=== PATIENT | male | born 1960 | race Caucasian/White ===

== ENCOUNTER 2021-11-15 14:51 | Outpatient (REF) | payer MEDICARE, SELFPAY ==
--- NOTE | ~2021-11-15 | CT_ITS ---
EXAMINATION: CT CHEST SCREENING CLINICAL INFORMATION: Smoking history COMPARISON: None. TECHNIQUE: Multidetector volumetric CT imaging of the chest is performed without contrast using low dose technique. Additional 2D coronal and sagittal reformatted images and axial 3D maximum intensity projection (MIP) images are generated on the CT workstation. This CT examination was performed using dose optimization techniques as appropriate, variously including the following: *Automated exposure control *Adjustment of mA and/or kV according to patient size (this includes techniques or standardized protocols for targeted exams where dose is matched to indication/reason for exam; i.e. extremities or head) *Use of iterative reconstruction technique DLP: 52 mGy-cm FINDINGS: LUNGS: There is a 11 x 7 mm left upper lobe nodule axial image 220 series 5. This is adjacent to a vessel and measurement may include nonopacified vessel.. There is a 3 mm right lower lobe nodule axial image 290 series 5. There is atelectasis at the lung bases.. MEDIASTINUM: There is coronary artery calcification. The mediastinum is otherwise normal. PLEURA: There is no pleural effusion. No pleural mass or thickening. AXILLA: No lymphadenopathy. UPPER ABDOMEN: Unremarkable OSSEOUS STRUCTURES: There are degenerative changes of the spine. CT/CT lung screening IMPRESSION: 2 pulmonary nodules, largest a 11 x 7 mm left upper lobe nodule. Size may be overestimated due to adjacent nonopacified vessel being included in the measurement. Coronary artery calcification. ASSESSMENT: Lung-RADS category 3: Probably Benign RECOMMENDATION: Six-month low-dose chest CT follow-up recommended.
== END 2021-11-15 14:52 | disposition home or self-care (01) ==
LOC: HO.CT 14:51
PROVIDERS: PCP Internal Medicine; Visit Provider Physician Assistant Medical
DX: Z12.2 Encounter for screening for malignant neoplasm of respiratory organs (principal); F17.210 Nicotine dependence, cigarettes, uncomplicated
CPT/HCPCS: 71271; G0296

== ENCOUNTER 2021-12-06 13:19 | Outpatient (REF) | payer MEDICARE, SELFPAY ==
[2021-12-06 14:48] LABS: Blood Urea Nitrogen 19 mg/dL (9-16); Estimated Glomerular Filt Rate 41
== END 2021-12-06 13:20 | disposition home or self-care (01) ==
LOC: HO.LAB 13:19
PROVIDERS: PCP Internal Medicine; Visit Provider Surgery
DX: Z87.891 Personal history of nicotine dependence (principal)
CPT/HCPCS: 36415; 82565; 84520

== ENCOUNTER 2021-12-11 10:51 | Outpatient (REF) | payer MEDICARE, SELFPAY ==
--- NOTE | ~2021-12-11 | CT_ITS ---
EXAMINATION: CT CHEST WITH CONTRAST CLINICAL INFORMATION: Pulmonary nodule. COMPARISON: Previous chest CT November 2021. TECHNIQUE: Multidetector volumetric CT imaging of the chest was obtained after the administration of 65 mL of Omnipaque 350 intravenous contrast without immediate adverse reactions. Axial MIP volume rendering provided. Sagittal and coronal reformatted images were obtained. This CT examination was performed using dose optimization techniques as appropriate, variously including the following: *Automated exposure control *Adjustment of mA and/or kV according to patient size (this includes techniques or standardized protocols for targeted exams where dose is matched to indication/reason for exam; i.e. extremities or head) *Use of iterative reconstruction technique DLP: 132 mGy-cm FINDINGS: LUNGS: The spiculated 7 x 11 mm left upper lobe nodule axial image 93 series 9 is stable. The 3 mm right lower lobe nodule axial image 126 series 9 is stable. There is linear scarring or subsegmental atelectasis at the lung bases. No endobronchial or endotracheal lesion is seen. MEDIASTINUM: There is mild coronary artery calcification. There is a trace pericardial effusion. The mediastinum is otherwise normal. PLEURA: There is no pleural effusion. No pleural mass or thickening. AXILLA: No lymphadenopathy. UPPER ABDOMEN: Unremarkable. OSSEOUS STRUCTURES: There are degenerative changes of the spine. CT/CT chest w con IMPRESSION: Stable 7 x 11 mm spiculated left upper lobe nodule. Fleischner guidelines were followed.
[2021-12-11] MEDS: iohexoL 350 MG/ML 100 ML INFUS..BTL IV (11:33)
== END 2021-12-11 10:52 | disposition home or self-care (01) ==
LOC: HO.CT 10:51
PROVIDERS: Visit Provider Surgery
DX: R91.1 Solitary pulmonary nodule (principal)
CPT/HCPCS: 71260; Q9967

== ENCOUNTER → 2021-12-20 08:52 | Outpatient (BNVA) | payer MEDICARE, SELFPAY | PROVIDERS: PCP Internal Medicine; Visit Provider Surgery | DX: R91.1 Solitary pulmonary nodule (principal) | CPT/HCPCS: 99202 ==

== ENCOUNTER → 2022-02-21 14:37 | Outpatient (BNV) | payer MEDICARE, SELFPAY | PROVIDERS: PCP Physician Assistant; Referring Provider Physician Assistant; Visit Provider Internal Medicine | DX: C34.90 Malignant neoplasm of unspecified part of unspecified bronchus or lung (principal) | CPT/HCPCS: 99205; 99213; 99214; G2211 ==

== ENCOUNTER 2022-04-10 11:14 | Outpatient (REF) | payer MEDICARE, SELFPAY | END 2022-04-10 11:15 | disposition home or self-care (01) | LOC: HO.LAB 11:14 | PROVIDERS: PCP Internal Medicine; Visit Provider Internal Medicine | DX: D75.839 Thrombocytosis, unspecified (principal); C34.90 Malignant neoplasm of unspecified part of unspecified bronchus or lung; Z13.79 Encounter for other screening for genetic and chromosomal anomalies | CPT/HCPCS: 36415; 81206; 81207; 81219; 81270; 81279; 81339 ==

== ENCOUNTER 2022-08-15 12:40 | Outpatient (REF) | payer MEDICARE, SELFPAY ==
--- NOTE | ~2022-08-15 | CT_ITS ---
EXAMINATION: CT CHEST WITHOUT CONTRAST CLINICAL INFORMATION: Malignant neoplasm of unspecified part. COMPARISON: CT chest 12/11/2021. TECHNIQUE: Multidetector volumetric CT imaging of the chest was done. Axial MIP volume rendering provided. Sagittal and coronal reformatted images were obtained. This CT examination was performed using dose optimization techniques as appropriate, variously including the following: *Automated exposure control *Adjustment of mA and/or kV according to patient size (this includes techniques or standardized protocols for targeted exams where dose is matched to indication/reason for exam; i.e. extremities or head) *Use of iterative reconstruction technique DLP: 236 mGy-cm. FINDINGS: TIRE RECAPPER: Well-inflated lungs. LUNGS: Postsurgical changes with loss of left upper lobe volume. The left upper lobe ill-defined nodule has been resected. A hyperexpanded left lower lobe is noted. There are no new nodules, mass or consolidation seen. MEDIASTINUM: The thyroid lobes are symmetric and normal. The central trachea and the bronchi widely patent. The heart size and pulmonary vascularity is normal. There are coronary artery calcifications present. No pericardial effusion seen. CORONARY ARTERY CALCIFICATION: There are mild coronary artery calcifications present. PLEURA: There is no pleural effusion. No pleural mass or thickening. AXILLA: No abnormal size axillary lymph nodes. No chest wall mass. UPPER ABDOMEN: Visualized liver, spleen, pancreas and bilateral adrenal glands are unremarkable. OSSEOUS STRUCTURES: No aggressive lytic or sclerotic process seen. There is mild ventral spondylosis lower dorsal spine. CT/CT chest wo IV con IMPRESSION: Postsurgical changes left upper lobe with resection of left upper lobe nodule. Otherwise lungs are clear. No abnormal mediastinal or axillary adenopathy. Fleischner guidelines were followed.
== END 2022-08-15 12:41 | disposition home or self-care (01) ==
LOC: HO.CT 12:40
PROVIDERS: PCP Internal Medicine; Visit Provider Surgery
DX: C34.90 Malignant neoplasm of unspecified part of unspecified bronchus or lung (principal)
CPT/HCPCS: 71250

== ENCOUNTER → 2022-08-29 09:36 | Outpatient (BNVA) | payer MEDICARE, SELFPAY | PROVIDERS: PCP Internal Medicine; Visit Provider Surgery | DX: C34.90 Malignant neoplasm of unspecified part of unspecified bronchus or lung (principal); J43.9 Emphysema, unspecified | CPT/HCPCS: 99212 ==

== ENCOUNTER → 2022-10-13 15:42 | Outpatient (BNVA) | payer MEDICARE, SELFPAY | PROVIDERS: PCP Internal Medicine; Visit Provider Internal Medicine | DX: J44.9 Chronic obstructive pulmonary disease, unspecified (principal); C34.90 Malignant neoplasm of unspecified part of unspecified bronchus or lung; Z87.891 Personal history of nicotine dependence | CPT/HCPCS: 99202 ==

== ENCOUNTER 2022-10-23 10:49 | Outpatient (REF) | payer MEDICARE, SELFPAY ==
--- NOTE | 2022-10-23 15:09 | PFT_ITS ---
Forced vital capacity is 82%, FEV1 68%, FEV1/FVC ratio is 62. FEF 25-75 37% and MVV 67%. Post bronchodilator therapy, there is no significant change. Total lung capacity 85% and residual volume 90%. Diffusion capacity is 40%. CONCLUSION: Obstructive airway disorder, moderately severe. No significant response to bronchodilator therapy. Proportionately more decrease in diffusion capacity may be due to pulmonary emphysema. Clinical correlation recommended. MD LEIF Armendariz/MODLinda / [id number]
== END 2022-10-23 10:50 | disposition home or self-care (01) ==
LOC: HO.RESP 10:49
PROVIDERS: Visit Provider Internal Medicine
DX: J44.9 Chronic obstructive pulmonary disease, unspecified (principal); C34.90 Malignant neoplasm of unspecified part of unspecified bronchus or lung
CPT/HCPCS: 94060; 94727; 94729

== ENCOUNTER → 2022-11-12 11:04 | Outpatient (BNVA) | payer MEDICARE, SELFPAY | PROVIDERS: PCP Internal Medicine; Visit Provider Internal Medicine | DX: C34.90 Malignant neoplasm of unspecified part of unspecified bronchus or lung (principal); J44.9 Chronic obstructive pulmonary disease, unspecified | CPT/HCPCS: 99212 ==

== ENCOUNTER 2023-02-18 12:43 | Outpatient (REF) | payer MEDICARE, SELFPAY ==
--- NOTE | ~2023-02-18 | CT_ITS ---
EXAMINATION: CT CHEST WITHOUT CONTRAST CLINICAL INFORMATION: Lung cancer COMPARISON: Previous chest CT most recent August 2022 TECHNIQUE: Multidetector volumetric CT imaging of the chest was done. Axial MIP volume rendering provided. Sagittal and coronal reformatted images were obtained. This CT examination was performed using dose optimization techniques as appropriate, variously including the following: *Automated exposure control *Adjustment of mA and/or kV according to patient size (this includes techniques or standardized protocols for targeted exams where dose is matched to indication/reason for exam; i.e. extremities or head) *Use of iterative reconstruction technique DLP: 132 mGy-cm FINDINGS: LUNGS: Exam is limited due to motion artifact. Emphysema. Postsurgical changes following partial left upper lobe lobectomy. Mild scarring or subsegmental atelectasis adjacent to the surgical staple line and focal bronchiectasis and bronchial wall thickening. This is similar to previous exam. 2 mm peripheral or subpleural right upper lobe nodule axial image 152 series 5 and 2 mm left upper lobe nodule adjacent to the fissure axial image 197 series 5. 3 mm right lower lobe nodule axial image 337 series 5. These are stable. The No endobronchial or endotracheal lesion. MEDIASTINUM: The mediastinum is normal. CORONARY ARTERY CALCIFICATION: Moderate PLEURA: There is no pleural effusion. No pleural mass or thickening. AXILLA: No lymphadenopathy. UPPER ABDOMEN: Unremarkable. OSSEOUS STRUCTURES: Mild degenerative changes of the spine. CT/CT chest wo IV con IMPRESSION: Slightly limited due to motion artifact. Emphysema. Postsurgical changes following partial left upper lobe lobectomy. Stable small pulmonary nodules. Fleischner guidelines were followed.
== END 2023-02-18 12:44 | disposition home or self-care (01) ==
LOC: HO.CT 12:43
PROVIDERS: PCP Internal Medicine; Visit Provider Surgery
DX: C34.91 Malignant neoplasm of unspecified part of right bronchus or lung (principal)
CPT/HCPCS: 71250

== ENCOUNTER → 2023-02-23 10:13 | Outpatient (BNVA) | payer MEDICARE, SELFPAY | PROVIDERS: PCP Internal Medicine; Visit Provider Internal Medicine | DX: J44.9 Chronic obstructive pulmonary disease, unspecified (principal); C34.90 Malignant neoplasm of unspecified part of unspecified bronchus or lung; Z87.891 Personal history of nicotine dependence | CPT/HCPCS: 99212 ==

== ENCOUNTER → 2023-02-27 08:58 | Outpatient (BNVA) | payer MEDICARE, SELFPAY | PROVIDERS: PCP Internal Medicine; Visit Provider Surgery | DX: C34.90 Malignant neoplasm of unspecified part of unspecified bronchus or lung (principal) | CPT/HCPCS: 99212 ==

== ENCOUNTER 2023-08-17 10:52 | Outpatient (REF) | payer MEDICARE, SELFPAY ==
--- NOTE | ~2023-08-17 | CT_ITS ---
EXAMINATION: CT CHEST WITHOUT CONTRAST CLINICAL INFORMATION: Restaging lung cancer. COMPARISON: Prior chest CT examinations, most recently 02/18/2023. TECHNIQUE: Multidetector volumetric CT imaging of the chest was done. Axial MIP volume rendering provided. Sagittal and coronal reformatted images were obtained. This CT examination was performed using dose optimization techniques as appropriate, variously including the following: *Automated exposure control *Adjustment of mA and/or kV according to patient size (this includes techniques or standardized protocols for targeted exams where dose is matched to indication/reason for exam; i.e. extremities or head) *Use of iterative reconstruction technique DLP: 203 mGy-cm FINDINGS: NEUROPSYCHOLOGY MEDICAL CONSULTANT: The lungs are symmetrically well-expanded. LUNGS: There are stable postoperative changes status-post prior partial left upper lobectomy. No residual or recurrent lesion is seen. At the posterior right base (5:280), a 3 mm noncalcified nodule is seen. Abutting the left major fissure (5:162), a 3 mm benign, pleural-based lymph node is seen. These nodules are stable from prior. No new nodule, mass, infiltrate or groundglass opacity is seen. There is no generalized small airway thickening. There is mild right base scar/subsegmental atelectasis. The central airways appear patent. MEDIASTINUM: The thyroid is unremarkable. There is no thoracic aortic aneurysm. There are mild atherosclerotic calcifications of the great vessel origins and thoracic aorta. No mediastinal or hilar lymphadenopathy is seen. CORONARY ARTERY CALCIFICATION: Mild. PLEURA: There is no pleural effusion. No pleural mass or thickening. AXILLA: No lymphadenopathy. There is mild bilateral gynecomastia. UPPER ABDOMEN: Unremarkable. OSSEOUS STRUCTURES: There is multi-level marked lower thoracic and upper lumbar degenerative disc disease and spondylosis. No acute or aggressive osseous finding is seen. CT/CT chest wo IV con IMPRESSION: 1. There are stable postoperative changes consistent with a partial left upper lobectomy. No residual or recurrent lesion is noted. 2. There are stable small bilateral pulmonary nodules. Recommend continued attention on imaging follow-up. 3. Nodule, mass, infiltrate or groundglass opacity is seen. 4. There is mild right base scar/subsegmental atelectasis, without focal airway obstruction. 5. No thoracic adenopathy or pleural effusion is seen. 6. There is mild bilateral gynecomastia. 7. There are multi-level degenerative changes of the thoracolumbar spine. No aggressive osseous lesion is seen.
== END 2023-08-17 10:53 | disposition home or self-care (01) ==
LOC: HO.CT 10:52
PROVIDERS: PCP Internal Medicine; Visit Provider Surgery
DX: C34.90 Malignant neoplasm of unspecified part of unspecified bronchus or lung (principal)
CPT/HCPCS: 71250

== ENCOUNTER 2023-08-25 13:08 | Outpatient (AMB) | payer MEDICARE, SELFPAY ==
[2023-08-25 13:20] VITALS: BP 142/68; PULSE 101; O2SAT 97; BMI 20.8
--- NOTE | 2023-08-25 13:20 | A.OFFVIS_ITS ---
Intake Vital Signs 08/25/23 13:20 Height 6 ft 1 in Weight 158 lb BMI 20.8 BP 142/68 H Blood Pressure Location Lt brachial Position Sitting Pulse 101 H Pulse Source Pulse Oximeter Pulse Oximetry (%) 97 Oxygen Delivery Method Room Air Intake Visit Reasons: emphysema Intake Note: pt is here for follow up and states he had a ruff couple of days due to cold, but better today. Family Support Specialist Required: No Allergies codeine Allergy (Severe, Verified 08/25/23 13:36) Itching Medication List - Last Reconciled 08/25/23 by Megan Salmeron MD 5-hydroxytryptophan (5-HTP) 50 mg PO BID PRN amitriptyline 50 mg PO DAILY PRN amlodipine 2.5 mg PO DAILY bupropion HCl 300 mg PO QAM omeprazole 20 mg PO DAILY umeclidinium 62.5 mcg/actuation (Incruse Ellipta) 1 inh inhalation Q24H 30 days Do you need a note to return to daycare/school/sports/work: No HPI emphysema HPI Details 63 YEARS OLD GENTLEMAN WITH CHRONIC OBST RUCTIVE PULMONARY DISEASE, HAD WEDGE RESECTION LEFT UPPER LOBE FOR NEOPLASM IN JANUARY 2022. HAS HAD NO RECURRENCE, HE DOES GET SOME DISCOMFORT IN THE LEFT UPPER CHEST TO OFF AND ON DUE TO COUGH. RECENTLY HAD A COMMON COLD FOR A WEEK OR 10 DAYS AND IT IMPROVED AFTER USING OTC COUGH MEDS ( DAYQUIL/NYQUIL ) HE DENIES ANY ACUTE RESPIRATORY SYMPTOMS AT THIS TIME. HE HAS ONLY MINIMAL DEGREE OF DYSPNEA ON EXERTION. [facility] Medical History Loss of tooth from removable partial denture COPD (chronic obstructive pulmonary disease) Hypertension, essential Personal history of nicotine dependence Surgical History S/P cervical disc replacement History of lung surgery History of cataract surgery History of lumbar surgery History of exploratory laparotomy History of colonoscopy Family History Mother Breast cancer Social History Household Members: None Housing: House Alcohol intake: current Alcohol intake frequency: a few times a month Patient Tobacco Use Status: Former Tobacco user Quit Date: 05/14/2021 Tobacco use type: Cigarette Years Smoked: onset 14, 1/2-1ppd x 47yrs, 35pyh - quit 2020 Current occupational status: disabled Review of Systems Const All systems reviewed & are unremarkable except as noted in HPI and below Eyes Reports no additional complaints ENT Reports no additional complaints and Reports neck pain Card Denies chest pain at rest, Denies irregular heart rhythm and Denies leg edema Resp Reports as per HPI GI Reports heartburn (GERD symptoms being treated with omeprazole) Reports no additional complaints Musc Reports back pain and Reports neck pain Skin/Breast Reports rash (Has chronic nummular Psoriasis , ) Neuro Reports no additional complaints Psych Reports anxiety Endo Reports no additional complaints Pancho/Lymph Reports no additional complaints Physical Exam Vital Signs: Last Vital Signs Pulse 101 H 08/25/23 13:20 BP 142/68 H 08/25/23 13:20 Pulse Ox 97 08/25/23 13:20 Oxygen Delivery Method Room Air 08/25/23 13:20 BMI result Body Mass Index 20.8 Const General: comfortable, no acute distress, alert and awake Orientation/consciousness: patient oriented x3 HEENT Head: Yes normal to inspection General nose exam: No nasal polyps present and No nasal discharge present Face and sinus: Yes sinuses nontender Mouth: oropharynx normal Throat: Yes posterior oropharynx normal Eyes General: appearance normal, both eyes and all related structures Neck Neck: Yes normal visual inspection, Yes no lymphadenopathy, Yes trachea midline and Yes no JVD Thyroid: Thyroid normal Chest Chest palpation & inspection: normal inspection of the chest, normal palpation of entire chest wall and no tenderness Resp Other: Percussion note is RESONANT Breath sounds are distant with prolonged expiratory phase . No wheezes and creps are heard ., Effort & Inspection: normal respiratory effort Auscultation: clear to auscultation bilaterally Cardio Palpation: normal PMI Rate: regular rate Rhythm: regular rhythm Heart sounds: no gallops and no murmurs Peripheral pulses: Peripheral pulses 2+ throughout GI Palpation (GI): Soft to palpation, nontender, No hepatosplenomegaly present and no masses Auscultation: normal bowel sounds Back/Spine/Pelvis Thoracic/Lumbar Spine: thoracic and lumbar spine normal to inspection and thoraco-lumbar ROM limited Skin General skin exam: other (He has Nummular Psoriasis on his back ) Neuro General: patient oriented x3 and no focal motor deficits Cranial nerves: Yes CN's II-XII intact bilaterally Extrem General: Yes normal to inspection, Yes no clubbing, cyanosis or edema and Yes no calf tenderness Psych Appearance: grossly normal and well kempt Speech and movement: Normal speech and movement present Assessment & Plan Assessment & Plan (1) Personal history of nicotine dependence: Comment: (Former smoker - onset 14, 1/2-1ppd x 47 yrs, 35pyh, quit 04/2021) Code(s): Z87.891 - Personal history of nicotine dependence Plan: COMMENDED FOR NOT SMOKING (2) COPD (chronic obstructive pulmonary disease): Comment: PATIENT HAS MILD TO MODERTAELY SEVERE COPD , HE DID NOT RESPOND POSITIVELY TO BRONCHODILATOR THERAPY. HIS FUNCTIONAL STATUS IS FAIRLY GOOD AT THIS TIME. Code(s): J44.9 - Chronic obstructive pulmonary disease, unspecified Plan: TX CONTINUE INCRUSE ELLIPTA ONE INH DAILY VENTOLIN 2 PUFFS Q 4-6 HRS PRN RE-ASSURED THAT HIS LUNGS ARE CLEAR AND HIS RESPIRATORY STATUS IS VERY STABLE (3) Adenocarcinoma, lung: Onset Date: ~2021 Comment: (Stage Ib - s/p ALVA wedge resection - 01/2022), by Dr. Rivera . He is doing very well after this surgery. I explained to him that the space created by wedge resection of the upper lobectomy, is compensated by expansion of the remaining lung. And he understands well. Code(s): C34.90 - Malignant neoplasm of unspecified part of unspecified bronchus or lung Plan: Continue yearly follow-up with Dr. Diaz Coding Level of Care Code Est Pt Level 3 (05206) Diagnoses Personal history of nicotine dependence Z87.891 COPD (chronic obstructive pulmonary disease) J44.9 Adenocarcinoma, lung C34.90
== END 2023-08-25 13:37 | disposition home or self-care (01) ==
PROVIDERS: PCP Internal Medicine; Visit Provider Internal Medicine
DX: Z87.891 Personal history of nicotine dependence (principal); J44.9 Chronic obstructive pulmonary disease, unspecified; C34.90 Malignant neoplasm of unspecified part of unspecified bronchus or lung
CPT/HCPCS: 99213

== ENCOUNTER → 2023-08-25 13:08 | Outpatient (BNVA) | payer MEDICARE, SELFPAY | PROVIDERS: PCP Internal Medicine; Visit Provider Internal Medicine | DX: J44.9 Chronic obstructive pulmonary disease, unspecified (principal); C34.90 Malignant neoplasm of unspecified part of unspecified bronchus or lung; Z87.891 Personal history of nicotine dependence | CPT/HCPCS: 99212 ==

== ENCOUNTER 2024-04-25 11:54 | Outpatient (REF) | payer MEDICARE, SELFPAY ==
[2024-04-25 12:27] LABS: Blood Urea Nitrogen 5 mg/dL (9-16); Estimated Glomerular Filt Rate > 60
== END 2024-04-25 11:55 | disposition home or self-care (01) ==
LOC: HO.LAB 11:54
PROVIDERS: PCP Internal Medicine; Visit Provider Internal Medicine
DX: C34.90 Malignant neoplasm of unspecified part of unspecified bronchus or lung (principal)
CPT/HCPCS: 36415; 82565; 84520

== ENCOUNTER 2024-05-24 10:32 | Outpatient (REF) | payer MEDICARE, SELFPAY ==
--- NOTE | ~2024-05-24 | CT_ITS ---
EXAMINATION: CT CHEST WITHOUT CONTRAST CLINICAL INFORMATION: Shortness of breath. COMPARISON: August 17, 2023 and February 18, 2023 TECHNIQUE: Multidetector volumetric CT imaging of the chest was done. Axial MIP volume rendering provided. Sagittal and coronal reformatted images were obtained. No intravenous access. This CT examination was performed using dose optimization techniques as appropriate, variously including the following: *Automated exposure control *Adjustment of mA and/or kV according to patient size (this includes techniques or standardized protocols for targeted exams where dose is matched to indication/reason for exam; i.e. extremities or head) *Use of iterative reconstruction technique DLP: 142 mGy-cm FINDINGS: LUNGS: Stable postoperative changes in the left upper lobe. 3 mm nodule right lower lobe on image 38 of series 4. 3 mm nodule abutting the left major fissure on image 23 of series 4. No new or enlarging pulmonary nodules. No focal consolidation. Central airways are patent. MEDIASTINUM: Imaged thyroid gland is unremarkable. Subcarinal lymph node measures 1.0 x 1.3 cm. Pretracheal lymph node measures 1.0 x 0.8 cm. Great vessels are of normal caliber. Heart size is normal. Small pericardial effusion. CORONARY ARTERY CALCIFICATION: Moderate. PLEURA: No pleural effusion. AXILLA: No lymphadenopathy. UPPER ABDOMEN: No adrenal mass. OSSEOUS STRUCTURES: No destructive bone lesions. CT/CT chest wo IV con IMPRESSION: Stable postoperative changes of partial left upper lobectomy. No new or enlarging pulmonary nodules. No acute intrathoracic abnormality. Electronically signed by: Phillip Calvo MD 05/30/2024 04:49 PM EDT
== END 2024-05-24 10:33 | disposition home or self-care (01) ==
LOC: HO.CT 10:32
PROVIDERS: Visit Provider Internal Medicine
DX: C34.90 Malignant neoplasm of unspecified part of unspecified bronchus or lung (principal)
CPT/HCPCS: 71250

== ENCOUNTER 2024-07-19 10:48 | Outpatient (AMB) | payer MEDICARE, SELFPAY ==
[2024-07-19 10:53] VITALS: BP 138/80; PULSE 104; O2SAT 100; BMI 21.4
--- NOTE | 2024-07-19 10:53 | MHC.OFFVIS ---
Vital Signs 07/19/24 10:53 Height 6 ft 1 in Weight 162 lb 0.636 oz BMI 21.4 BP 138/80 Blood Pressure Location Rt brachial Position Sitting Pulse 104 H Pulse Source Pulse Oximeter Pulse Oximetry (%) 100 Oxygen Delivery Method Room Air Intake Visit Reasons: COPD Screen Printing Inspector Required: No Website Developer: Website Developer offered & declined Accompanied by: Self / Same As Patient Allergies codeine Allergy (Severe, Verified 07/19/24 11:01) Itching Medication List - Last Reconciled 07/19/24 by Megan Salmeron MD 5-hydroxytryptophan (5-HTP) 50 mg PO BID PRN amitriptyline 50 mg PO DAILY PRN amlodipine 2.5 mg PO DAILY bupropion HCl XL 300 mg PO QAM bupropion HCl XL 300 mg PO QAM omeprazole 20 mg PO DAILY tadalafil 20 mg PO Q OTHER DAY PRN tamsulosin 0.4 mg PO BEDTIME umeclidinium 62.5 mcg/actuation (Incruse Ellipta) 1 inh inhalation Q24H 30 days Do you need a note to return to daycare/school/sports/work: No HPI HPI COPD: Details: This 64 years old gentleman, is here for follow-up after 1 year. In the interim. He has remained very stable, without any acute exacerbation. He denies cough or wheezing. His main complaint is that he still feels short of breath on exertion like walking or climbing stairs. He is using Incruse Ellipta 1 inhalation daily and hardly needs to use the albuterol. 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 And he comes to see me once a year. He did quit smoking in 2020. [facility] Medical History Loss of tooth from removable partial denture COPD (chronic obstructive pulmonary disease) Hypertension, essential Personal history of nicotine dependence Surgical History S/P cervical disc replacement History of lung surgery History of cataract surgery History of lumbar surgery History of exploratory laparotomy History of colonoscopy Family History Mother Breast cancer Social History Household Members: None Housing: House Alcohol intake: current Alcohol intake frequency: a few times a month Patient Tobacco Use Status: Former Tobacco user Tobacco use type: Cigarette Years Smoked: onset 14, 1/2-1ppd x 47yrs, 35pyh - quit 2020 Current occupational status: disabled Review of Systems Const All systems reviewed & are unremarkable except as noted in HPI and below Eyes Reports no additional complaints ENT Reports no additional complaints and Reports neck pain Card Denies chest pain at rest, Denies irregular heart rhythm and Denies leg edema Resp Reports as per HPI GI Reports heartburn (GERD symptoms being treated with omeprazole) Reports no additional complaints Musc Reports back pain and Reports neck pain Skin/Breast Reports rash (Has chronic nummular Psoriasis , ) Neuro Reports no additional complaints Psych Reports anxiety Endo Reports no additional complaints Pancho/Lymph Reports no additional complaints Physical Exam Vital Signs: Last Vital Signs Pulse 104 H 07/19/24 10:53 BP 138/80 07/19/24 10:53 Pulse Ox 100 07/19/24 10:53 Oxygen Delivery Method Room Air 07/19/24 10:53 BMI result Body Mass Index 21.4 Const General: comfortable, no acute distress, alert and awake Orientation/consciousness: patient oriented x3 HEENT Head: Yes normal to inspection General nose exam: No nasal polyps present and No nasal discharge present Face and sinus: Yes sinuses nontender Mouth: oropharynx normal Throat: Yes posterior oropharynx normal Eyes General: appearance normal, both eyes and all related structures Neck Neck: Yes normal visual inspection, Yes no lymphadenopathy, Yes trachea midline and Yes no JVD Thyroid: Thyroid normal Chest Chest palpation & inspection: normal inspection of the chest, normal palpation of entire chest wall and no tenderness Resp Other: Percussion note is RESONANT Breath sounds are distant with prolonged expiratory phase . No wheezes and creps are heard ., Effort & Inspection: normal respiratory effort Auscultation: clear to auscultation bilaterally Cardio Palpation: normal PMI Rate: regular rate Rhythm: regular rhythm Heart sounds: no gallops and no murmurs Peripheral pulses: Peripheral pulses 2+ throughout GI Palpation (GI): Soft to palpation, nontender, No hepatosplenomegaly present and no masses Auscultation: normal bowel sounds Back/Spine/Pelvis Thoracic/Lumbar Spine: thoracic and lumbar spine normal to inspection and thoraco-lumbar ROM limited Skin General skin exam: other (He has Nummular Psoriasis on his back ) Neuro General: patient oriented x3 and no focal motor deficits Cranial nerves: Yes CN's II-XII intact bilaterally Extrem General: Yes normal to inspection, Yes no clubbing, cyanosis or edema and Yes no calf tenderness Psych Appearance: grossly normal and well kempt Speech and movement: Normal speech and movement present Office Procedures Spirometry Testing Spirometry Comments: In office spirometry completed with results given to Dr Salmeron. [id number]- Spirometry Results Reviewed Results Reviewed: SPIROMETRY Because of his complaint of persistent and slightly increased shortness of breath on exertion, .A spirometry in the office was done The results are consistent with mild to moderate degree of obstructive airway disorder, numbers are not any worse from PFT in 2021 and spirometry in 2022. Rather there is some improvement in the flow volumes. Assessment & Plan Assessment & Plan (1) COPD (chronic obstructive pulmonary disease): Comment: PATIENT HAS MILD TO MODERTAELY SEVERE COPD , HE DID NOT RESPOND POSITIVELY TO BRONCHODILATOR THERAPY. HIS FUNCTIONAL STATUS IS FAIRLY GOOD THOUGH HE COMPLAINS OF SLIGHT INCREASE IN DYSPNEA ON EXERTION. SPIROMETRY SHOWS THAT THERE IS NO DECLINE IN HIS PULMONARY FUNCTION, RATHER THE FLOW VOLUMES ARE SLIGHTLY INCREASED. Code(s): J44.9 - Chronic obstructive pulmonary disease, unspecified Category: Medical Plan: REASSURED CONTINUE TO USE INCRUSE ELLIPTA 1 INHALATION DAILY ALBUTEROL HFA 2 PUFFS Q 6 HOURS ONLY P.R.N.. DO GENTLE DEEP BREATHING EXERCISES DAILY. FOLLOW-UP Q 6 MONTHS. (2) Adenocarcinoma, lung: Onset Date: ~2021 Comment: (Stage Ib - s/p ALVA wedge resection - 01/2022), by Dr. Rivera . He is doing very well after this surgery. I explained to him that the space created by wedge resection of the upper lobectomy, is compensated by expansion of the remaining lung. And he understands well. Code(s): C34.90 - Malignant neoplasm of unspecified part of unspecified bronchus or lung Category: Medical Plan: HE IS DOING WELL. FOLLOW-UP WITH ONCOLOGY SERVICE NEEDED Orders: Orders AMB Spirometry Testing Today J44.9 - Chronic obstructive pulmonary disease, unspecified Coding Level of Care Code Est Pt Level 3 (02775) Diagnoses COPD (chronic obstructive pulmonary disease) J44.9 Adenocarcinoma, lung C34.90 CPT Codes Spirometry - CPT: 96090- Spirometry ([id number])
== END 2024-07-19 11:42 | disposition home or self-care (01) ==
LOC: HO.HPS 10:49
PROVIDERS: PCP Internal Medicine; Visit Provider Internal Medicine
DX: J44.9 Chronic obstructive pulmonary disease, unspecified (principal); C34.90 Malignant neoplasm of unspecified part of unspecified bronchus or lung
CPT/HCPCS: 94010; 99213

== ENCOUNTER → 2024-07-19 10:48 | Outpatient (BNVA) | payer MEDICARE, SELFPAY | PROVIDERS: PCP Internal Medicine; Visit Provider Internal Medicine | DX: J44.9 Chronic obstructive pulmonary disease, unspecified (principal); C34.90 Malignant neoplasm of unspecified part of unspecified bronchus or lung | CPT/HCPCS: 94010; 99212 ==

== ENCOUNTER 2025-01-16 11:06 | Outpatient (AMB) | payer MEDICARE, SELFPAY ==
[2025-01-16 11:11] VITALS: BP 122/74; PULSE 96; O2SAT 97; BMI 22.1
--- NOTE | 2025-01-16 11:11 | MHC.OFFVIS ---
Vital Signs 01/16/25 11:11 Height 6 ft 1 in Weight 167 lb 8.821 oz BMI 22.1 BP 122/74 Blood Pressure Location Rt brachial Position Sitting Pulse 96 Pulse Source Pulse Oximeter Pulse Oximetry (%) 97 Oxygen Delivery Method Room Air Intake Visit Reasons: COPD Allergies codeine Allergy (Severe, Verified 01/16/25 11:50) Itching Medication List - Last Reconciled 01/16/25 by Megan Salmeron MD albuterol sulfate 2.5 mg inhalation Q4-6H PRN albuterol sulfate 90 mcg/actuation 2 puffs inhalation Q4-6H PRN 30 days amlodipine 2.5 mg PO DAILY bupropion HCl XL 300 mg PO QAM bupropion HCl XL 300 mg PO QAM omeprazole 20 mg PO DAILY tadalafil 20 mg PO Q OTHER DAY PRN tamsulosin 0.4 mg PO BEDTIME umeclidinium 62.5 mcg/actuation (Incruse Ellipta) 1 inh inhalation Q24H 30 days Do you need a note to return to daycare/school/sports/work: No HPI HPI COPD: Details: This 65 years old gentleman, is here for follow-up after 1 year. In the interim period He has remained very stable. In September of this year and then again in December he had bouts of acute exacerbation. He started having acute cough with some shortness of breath. Seen in the emergency room and treated with a course of antibiotic , doxycycline . He got better but remains quite concerned and is afraid that he may continue to have these acute exacerbations. He denies cough or wheezing at present. His main complaint is that he still feels short of breath on exertion like walking or climbing stairs. He is using Incruse Ellipta 1 inhalation daily and hardly needs to use the albuterol. 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 Nneka Diaz . He has had no recurrence He is being followed by Oncology , [facility] Medical History Loss of tooth from removable partial denture COPD (chronic obstructive pulmonary disease) Hypertension, essential Personal history of nicotine dependence Surgical History S/P cervical disc replacement History of lung surgery History of cataract surgery History of lumbar surgery History of exploratory laparotomy History of colonoscopy Family History Mother Breast cancer Social History Household Members: None Housing: House Alcohol intake: current Alcohol intake frequency: a few times a month Patient Tobacco Use Status: Former Tobacco user Tobacco use type: Cigarette Years Smoked: onset 14, 1/2-1ppd x 47yrs, 35pyh - quit 2020 Current occupational status: disabled Review of Systems Const All systems reviewed & are unremarkable except as noted in HPI and below Eyes Reports no additional complaints ENT Reports no additional complaints and Reports neck pain Card Denies chest pain at rest, Denies irregular heart rhythm and Denies leg edema Resp Reports as per HPI GI Reports heartburn (GERD symptoms being treated with omeprazole) Reports no additional complaints Musc Reports back pain and Reports neck pain Skin/Breast Reports rash (Has chronic nummular Psoriasis , ) Neuro Reports no additional complaints Psych Reports anxiety Endo Reports no additional complaints Pancho/Lymph Reports no additional complaints Physical Exam Vital Signs: Last Vital Signs Pulse 96 01/16/25 11:11 BP 122/74 01/16/25 11:11 Pulse Ox 97 01/16/25 11:11 Oxygen Delivery Method Room Air 01/16/25 11:11 BMI result Body Mass Index 22.1 Const General: comfortable, no acute distress, alert and awake Orientation/consciousness: patient oriented x3 HEENT Head: Yes normal to inspection General nose exam: No nasal polyps present and No nasal discharge present Face and sinus: Yes sinuses nontender Mouth: oropharynx normal Throat: Yes posterior oropharynx normal Eyes General: appearance normal, both eyes and all related structures Neck Neck: Yes normal visual inspection, Yes no lymphadenopathy, Yes trachea midline and Yes no JVD Thyroid: Thyroid normal Chest Chest palpation & inspection: normal inspection of the chest, normal palpation of entire chest wall and no tenderness Resp Other: Percussion note is RESONANT Breath sounds are distant with prolonged expiratory phase . No wheezes and creps are heard ., Effort & Inspection: normal respiratory effort Auscultation: clear to auscultation bilaterally Cardio Palpation: normal PMI Rate: regular rate Rhythm: regular rhythm Heart sounds: no gallops and no murmurs Peripheral pulses: Peripheral pulses 2+ throughout GI Palpation (GI): Soft to palpation, nontender, No hepatosplenomegaly present and no masses Auscultation: normal bowel sounds Back/Spine/Pelvis Thoracic/Lumbar Spine: thoracic and lumbar spine normal to inspection and thoraco-lumbar ROM limited Skin General skin exam: other (He has Nummular Psoriasis on his back ) Neuro General: patient oriented x3 and no focal motor deficits Cranial nerves: Yes CN's II-XII intact bilaterally Extrem General: Yes normal to inspection, Yes no clubbing, cyanosis or edema and Yes no calf tenderness Psych Appearance: grossly normal and well kempt Speech and movement: Normal speech and movement present Assessment & Plan Assessment & Plan (1) Personal history of nicotine dependence: Comment: (Former smoker - onset 14, 09/15-1ppd x 47 yrs, 35pyh, quit 04/2021) Code(s): Z87.891 - Personal history of nicotine dependence Category: Medical Plan: Commended for having quit smoking, had a good discussion with him, he has no urge to go back to smoking. (2) Adenocarcinoma, lung: Onset Date: ~2021 Comment: (Stage Ib - s/p ALVA wedge resection - 01/2022), by Dr. Rivera . He is doing very well after this surgery. I explained to him that the space created by wedge resection of the upper lobectomy, is compensated by expansion of the remaining lung. And he understands well. I also explained to him that a spot indicating scar tissue will continue to be seen on the plain chest x-ray. Code(s): C34.90 - Malignant neoplasm of unspecified part of unspecified bronchus or lung Category: Medical Plan: He is reassured and advised to continue follow-up with oncology and should have annual CT scan of the chest. (3) COPD (chronic obstructive pulmonary disease): Comment: PATIENT HAS MILD TO MODERTAELY SEVERE COPD , HIS FUNCTIONAL STATUS IS FAIRLY GOOD THOUGH HE COMPLAINS OF SLIGHT INCREASE IN DYSPNEA ON EXERTION. He did have acute exacerbation in September and December of this year, and is afraid that he may keep on having these frequent exacerbations. Code(s): J44.9 - Chronic obstructive pulmonary disease, unspecified Category: Medical Plan: I reassured him and advised him to stay away from any respiratory infections. Also would give him a supply of prednisone and doxycycline to keep on hand, mainly for his reassurance and hopefully this will avoid his going to the emergency room each time. Medications: New prednisone 20 mg PO BID 5 days 10 tabs 0RF copd excerbation doxycycline hyclate 100 mg PO BID 7 days 14 tabs 0RF bronchitis Coding Level of Care Code Est Pt Level 3 (52630) Diagnoses Personal history of nicotine dependence Z87.891 Adenocarcinoma, lung C34.90 COPD (chronic obstructive pulmonary disease) J44.9
--- OUTSIDE RECORDS SUMMARY | 2025-01-16 12:53 | XMS_ITS | Clinical Summary ---
Author Organization [facility] Address [address] [place] [address] Care Team Providers Care Delivery Manager Name Role Phone Sanjay Rhodes DO Primary Care Provider [phone] Surgical History Surgery Date Site/Laterality Comments EYE SURGERY PROCEDURE: HISTORICAL EYE SURGERY BACK SURGERY 1994 PROCEDURE: HISTORICAL BACK SURGERY OTHER SURGICAL HISTORY 2002 PROCEDURE: CO LAPS COLECTOMY PRTL W/END CLST & CLSR DSTL SGM; COMMENT: x2 OTHER SURGICAL HISTORY 01/15/2022 N/A PROCEDURE: CO THORACOSCOPY W/THERA WEDGE RESEXN INITIAL UNILAT OTHER SURGICAL HISTORY 2021 PROCEDURE: CO DISCECTOMY ANT DCMPRN CORD CERVICAL 1 NTRSPC; COMMENT: Anterior cervical discectomy and fusion Medical History Medical History Date Comments Asthma DX:Asthma Emphysema/COPD (CMS/HCC V24, CMS/HCC V28) DX:Emphysema/COPD (HCC) Essential hypertension DX:Essent ial hypertension Lung cancer (CMS/HCC V24, CM S/HCC V28) DX:Lung cancer (HCC) Asbestos exposure DX:Asbestos ex posure SOB (shortness of breath) DX:SOB (shortness of breath) Primary cancer of left upper lobe of lung (CMS/HCC V24, CMS/HCC V28) 01/20/2022 DX:Primary cancer of l eft upper lobe of lung ([facility]); COMMENT: S/p ALVA trisegementectomy on 01/15/2022 Family History Medical History Relation Name Comments Breast cancer Mother Breast cancer Sister Relation Name Status Comments Father Alive Mother Alive Sister Alive Social History Tobacco Use Types Packs/Day Years Used Date Smoking Tobacco: Former Cigarettes 0.5 47.6 0 09/14/1973 - 04/15/2021 Alcohol Use Standard Drinks/Week Comments Yes 0 (1 standard drink = 0.6 oz pur e alcohol) Sex and Gender Information Value Date Recorded Sex Assigned at Not on file Legal Sex Male 11:51 AM EST Gender Identity Not on file Sexual Orientation Not on file Obstetrics History Last Filed Vital Signs Vital Sign Reading Time Taken Comments Blood Pressure 138/83 06/06/2024 11:13 AM EDT Sitting L Arm Pulse 101 06/06/2024 11:13 AM EDT Temperature - - Respiratory Rate - - Oxygen Saturation - - Inhaled Oxygen Concentration - - Weight 71.9 kg (158 lb 8 oz) 06/06/2024 11:13 AM EDT Height 185.4 cm (6' 1 ) 06/06/2024 11:1 3 AM EDT Body Mass Index 20.91 06/06/2024 11:13 AM EDT Plan of Treatment Health Maintenance Due Date Last Done Comments DTaP,Tdap,and Td Vaccines (1 - Tdap) 1977 Pneumococcal Vaccine: 50+ Ye ars (1 of 1 - PCV) 01/10/2008 Zoster Vaccines (1 of 2) 01/10/2008 Abdominal Aortic Aneurysm (A AA) Screen 08/12/2022 Cholesterol Screening (Lipid Panel) 08/12/2022 Colorectal Cancer Screening: Colonoscopy 08/12/2022 Depression Screening 08/12/2022 Hepatitis C Screening 08/12/2022 Lung Cancer Screening (Low Dose CT) 08/12/2022 Social Influencers of Health Screening 08/12/2022 Falls Risk Assessment 2023 COVID-19 Vaccine ( - 2023-2 5 season) 2024 Influenza Vaccine (Season Ended) 2025 RSV Immunization Adult Patie nts (1 - 1-dose 75+ series) 2033 HIB Vaccines Aged Out No longer eligi ble based on patient's age to complete this topic HPV Vaccines Aged Out No longer eligi ble based on patient's age to complete this topic Hepatitis A Vaccines Aged Out No long er eligible based on patient's age to complete this topic Hepatitis B Vaccines Aged Out No long er eligible based on patient's age to complete this topic IPV Vaccines Aged Out No longer eligi ble based on patient's age to complete this topic MMR Vaccines Aged Out No longer eligi ble based on patient's age to complete this topic Meningococcal ACWY Vaccine Aged Out N o longer eligible based on patient's age to complete this topic Meningococcal B Vaccine Aged Out No l onger eligible based on patient's age to complete this topic RSV Immunization Patients Un fred 20 months Aged Out No longer eligible b ased on patient's age to complete this topic Varicella Vaccines Aged Out No longer eligible based on patient's age to complete this topic Advance Directives Documents on File Type Date Recorded Patient Elect Equip Maint Eng Expl anation Health Care Decision (hx) 01/15/2022 AD GUPTA DIRECTIVE Health Care Decision (hx) 01/15/2022 AD GUPTA DIRECTIVE Health Care Decision (hx) 01/15/2022 AD GUPTA DIRECTIVE Health Care Decision (hx) 01/15/2022 AD GUPTA DIRECTIVE Care Teams Delivery Manager Relationship Specialty Start Date End Date Sanjay Rhodes DO PCP - General Internal Medicine 12/19/21
== END 2025-01-16 12:07 | disposition home or self-care (01) ==
LOC: HO.HPS 11:07
PROVIDERS: PCP Internal Medicine; Visit Provider Internal Medicine
DX: Z87.891 Personal history of nicotine dependence (principal); C34.90 Malignant neoplasm of unspecified part of unspecified bronchus or lung; J44.9 Chronic obstructive pulmonary disease, unspecified
CPT/HCPCS: 99213

== ENCOUNTER → 2025-01-16 11:06 | Outpatient (BNVA) | payer MEDICARE, SELFPAY | PROVIDERS: PCP Internal Medicine; Visit Provider Internal Medicine | DX: J44.9 Chronic obstructive pulmonary disease, unspecified (principal); C34.90 Malignant neoplasm of unspecified part of unspecified bronchus or lung; Z87.891 Personal history of nicotine dependence | CPT/HCPCS: 99212 ==